=== PATIENT | female | born 1970 | race Caucasian/White ===

== ENCOUNTER 2018-06-02 00:51 | Emergency (ER) | payer OTHER ==
[2018-06-02] MEDS: METHOCARBAMOL 750 MG TAB PO (07:32)
[2018-06-02] MEDS: DEXAMETHASONE 10 MG/ML 1 ML INJ IM (07:35)
[2018-06-02] MEDS: KETOROLAC 30 MG INJ IM (07:40)
== END 2018-06-02 09:03 | disposition home or self-care (01) ==
LOC: FTE 00:51
DX: J06.9 Acute upper respiratory infection, unspecified (principal); M54.5 Low back pain; I10 Essential (primary) hypertension
CPT/HCPCS: 81025; 96372; 99284-25